=== PATIENT | female | born 1960 | race Caucasian/White ===

== ENCOUNTER 2019-08-13 11:33 | Emergency (ER) | payer MEDICARE, MEDICAID ==
--- NOTE | 2019-08-13 12:13 | EDM.PDOC ---
ED HPI GENERAL MEDICAL PROBLEM - General Chief Complaint: Neurological Problem Stated Complaint: SLURRED SPEECH/FALL Time Seen by Provider: 08/13/19 12:05 Source of Information: Reports: Patient, RN Notes Reviewed History Limitations: Reports: No Limitations - History of Present Illness INITIAL COMMENTS - FREE TEXT/NARRATIVE: Patient is a 58-year-old female who presents to the ED with staff from [facility] , for the evaluation of a fall earlier this a.m. The patient is not complaining of pain anywhere, she does not think that she hit her head. The nurse from [facility] present in the room, states that before 8:00 this morning she had a fall that was unwitnessed, and had some mild speech slurring, that they were worried about. Patient states that she fell onto her butt, due to the floor being slippery. Nurse states that the patient has carpet in her room so she is not unsure as to why the floor would have been slippery. Patient appears to be alert and oriented x3, and states that she had some eggs for breakfast, knows that the month is July, and that the day is Friday. The nurse notes that the patient had a mild choking type accident yesterday, while she was taking her medications, this is not known as a common problem for her. The patient's primary provider is Eunice Neol. Patient denies any other sick-like symptoms, fever/chills, chest pain/shortness of breath, cough. She further denies any sort of dizziness feelings, and states she has been eating and drinking okay as well. - Related Data Allergies Allergy/AdvReac Type Severity Reaction Status Date / Time cephalexin [Cephalexin] Allergy Severe Other Verified 08/13/19 11:42 indomethacin Allergy Severe Other Verified 08/13/19 11:42 Penicillins Allergy Severe Other Verified 08/13/19 11:42 monohydrate Allergy Severe Other Uncoded 08/13/19 11:42 Home Meds: Home Meds Sulfamethoxazole/Trimethoprim [Septra DS] 1 each PO BID #14 tab 08/13/19 [Rx] Past Medical History HEENT History: Reports: Impaired Vision Cardiovascular History: Reports: Hypertension Respiratory History: Reports: Sleep Apnea Musculoskeletal History: Reports: Fracture Other Musculoskeletal History: right hand Psychiatric History: Reports: Anxiety, Depression, Developmental Delay Endocrine/Metabolic History: Reports: Hypothyroidism Dermatologic History: Reports: Cellulitis - Past Surgical History Musculoskeletal Surgical History: Reports: Other (See Below) Other Musculoskeletal Surgeries/Procedures:: fracture repair 2018 Social & Family History - Family History Family Medical History: Noncontributory - Tobacco Use Smoking Status *Q: Never Smoker Second Hand Smoke Exposure: No - Caffeine Use Caffeine Use: Reports: Coffee, Soda, Tea - Recreational Drug Use Recreational Drug Use: No ED ROS GENERAL - Review of Systems Review Of Systems: Comprehensive ROS is negative, except as noted in HPI. ED EXAM, GENERAL - Physical Exam Exam: See Below Exam Limited By: No Limitations General Appearance: Alert, WD/WN, No Apparent Distress Eye Exam: Bilateral Eye: EOMI, Normal Inspection, PERRL Ears: Normal External Exam, Normal Canal, Hearing Grossly Normal, Normal TMs Nose: Normal Inspection Throat/Mouth: Normal Inspection, Normal Lips, Normal Teeth, Normal Gums, Normal Oropharynx, Normal Voice, No Airway Compromise Head: Atraumatic, Normocephalic Neck: Normal Inspection Respiratory/Chest: No Respiratory Distress, Lungs Clear, Normal Breath Sounds, No Accessory Muscle Use, Chest Non-Tender Cardiovascular: Normal Peripheral Pulses, Regular Rate, Rhythm, No Edema, No Murmur Peripheral Pulses: 3+: Radial (L), Radial (R) GI/Abdominal: Normal Bowel Sounds, Soft, Non-Tender, No Distention, No Mass Back Exam: Normal Inspection Extremities: Normal Inspection, Normal Capillary Refill Neurological: Alert, Oriented, Normal Cognition, No Motor/Sensory Deficits Psychiatric: Normal Affect, Normal Mood Skin Exam: Warm, Dry, Intact, Normal Color, No Rash Course - Vital Signs Last Recorded V/S: Last Vital Signs Temp 96.5 F L 08/13/19 11:42 Pulse 82 08/13/19 11:42 Resp 20 08/13/19 11:42 BP 126/80 08/13/19 11:42 Pulse Ox 100 08/13/19 11:42 - Orders/Labs/Meds Orders: Active Orders 24 hr Category Date Time Status CULTURE URINE [RM] Routine Lab 08/13/19 13:17 Ordered Labs: Laboratory Tests 08/13/19 08/13/19 08/13/19 Range/Units 12:18 12:18 12:57 WBC 8.07 (3.98-10.04) K/mm3 RBC 4.32 (3.98-5.22) M/mm3 Hgb 12.2 (11.2-15.7) gm/dl Hct 38.0 (34.1-44.9) % MCV 88.0 (79.4-94.8) fl MCH 28.2 (25.6-32.2) pg MCHC 32.1 L (32.2-35.5) g/dl RDW Std Deviation 43.9 (36.4-46.3) fL Plt Count 337 (182-369) K/mm3 MPV 9.0 L (9.4-12.3) fl Neut % (Auto) 76.7 H (34.0-71.1) % Lymph % (Auto) 13.3 L (19.3-51.7) % [place] % (Auto) 7.7 (4.7-12.5) % Eos % (Auto) 1.7 (0.7-5.8) Baso % (Auto) 0.5 (0.1-1.2) % Neut # (Auto) 6.19 H (1.56-6.13) K/mm3 Lymph # (Auto) 1.07 L (1.18-3.74) K/mm3 [place] # (Auto) 0.62 H (0.24-0.36) K/mm3 Eos # (Auto) 0.14 (0.04-0.36) K/mm3 Baso # (Auto) 0.04 (0.01-0.08) K/mm3 Sodium 138 (136-145) mEq/L Potassium 4.5 (3.5-5.1) mEq/L Chloride 103 (98-107) mEq/L Carbon Dioxide 28 (21-32) mEq/L Anion Gap 11.5 (5-15) BUN 23 H (7-18) mg/dL Creatinine 0.9 (0.55-1.02) mg/dL Est Cr Clr Drug Dosing 62.23 mL/min Estimated GFR (MDRD) > 60 (>60) mL/min BUN/Creatinine Ratio 25.6 H (14-18) Glucose 103 (74-106) mg/dL Calcium 9.0 (8.5-10.1) mg/dL Magnesium 2.0 (1.8-2.4) mg/dl Total Bilirubin 0.4 (0.2-1.0) mg/dL AST 19 (15-37) U/L ALT 24 (14-59) U/L Alkaline Phosphatase 129 H (46-116) U/L Total Protein 7.2 (6.4-8.2) g/dl Albumin 2.8 L (3.4-5.0) g/dl Globulin 4.4 gm/dL Albumin/Globulin Ratio 0.6 L (1-2) Urine Color Yellow (Yellow) Urine Appearance Slt cloudy H (Clear) Urine pH 7.0 (5.0-8.0) Ur Specific [place] 1.020 (1.005-1.030) Urine Protein Trace H (Negative) Urine Glucose (UA) Negative (Negative) Urine Ketones Negative (Negative) Urine Occult Blood Trace-intact H (Negative) Urine Nitrite Negative (Negative) Urine Bilirubin Negative (Negative) Urine Urobilinogen 0.2 (0.2-1.0) Ur Leukocyte Esterase Trace H (Negative) Urine RBC 5-10 H (0-5) /hpf Urine WBC 10-20 H (0-5) /hpf Ur Squamous Epith Cells 0-5 (0-5) /hpf Urine Bacteria Many H (FEW) /hpf Urine Mucus Rare (FEW) /hpf - Re-Assessments/Exams Free Text/Narrative Re-Assessment/Exam: 08/13/19 12:14 Patient presents to the ED for the evaluation of her fall, and other issues. Have ordered some lab work, head CT, chest x-ray for further evaluation. 08/13/19 13:01 Radiology report demonstrates no acute processes noted on the noncontrast head CT, and also nothing on the 2 view chest x-ray. Analysis is still pending, but the patient's metabolic panel and CBC are essentially within normal limits she is mildly dry, she can supplement with oral fluids. 08/13/19 13:17 Patient does appear to have a UTI via lab results, does not appear to be contaminated. Urine was sent for culture activities. Patient has a adverse reaction to penicillins and cephalexin, so will start her on Bactrim for management. Departure - Departure Time of Disposition: 13:20 Disposition: Home, Self-Care 01 Condition: Good Clinical Impression: Fall Qualifiers: Encounter type: initial encounter Qualified Code(s): W19.XXXA - Unspecified fall, initial encounter UTI (urinary tract infection) Qualifiers: Urinary tract infection type: acute cystitis Hematuria presence: with hematuria Qualified Code(s): N30.01 - Acute cystitis with hematuria - Discharge Information *PRESCRIPTION DRUG MONITORING PROGRAM REVIEWED*: No *COPY OF PRESCRIPTION DRUG MONITORING REPORT IN PATIENT CELE: No Instructions: Urinary Tract Infection, Adult, [id number] Referrals: Eunice Noel PA-C [Primary Care Provider] - Forms: ED Department Discharge Additional Instructions: You have been evaluated in the ED for your urinary symptoms. Your urinalysis was consistent with an acute urinary tract infection. Your urine was sent for culture, and you will be notified if you should need a change in your antibiotic. This may take up to 48 hours to result. You may take AZO for urinary pain relief. This is available over the counter, and can be attained at any retail store like [employer] or any pharmacy. Please be aware that this medication will make your urine turn orange. You have been given a prescription for Trimethoprim/Sulfamethoxazole, 1 tablet 2 times a day for 7 days. This has been electronically sent to the [facility] pharmacy located near [facility]. Please increase your oral fluid intake and try to stay adequately hydrated. Recommend you follow-up with your regular care provider, sometime next week to make sure that your symptoms are getting better as expected. Please return to the ED if your symptoms change or worsen. Sepsis Event Note - Evaluation Sepsis Screening Result: No Definite Risk - Focused Exam Vital Signs: Vital Signs Temp Pulse Resp BP Pulse Ox 08/13/19 11:42 96.5 F L 82 20 126/80 100 Date Exam was Performed: 08/13/19 Time Exam was Performed: 13:17 - My Orders Last 24 Hours: My Active Orders 08/13/19 13:17 CULTURE URINE [RM] Routine - Assessment/Plan Last 24 Hours: My Active Orders 08/13/19 13:17 CULTURE URINE [RM] Routine
--- NOTE | 2019-08-13 12:47 | CR ---
Chest: 2 views of the chest were obtained. Comparison: No previous chest x-ray. Heart size is normal. Tortuous thoracic aorta is seen. Lungs are clear with no acute parenchymal change. No acute osseous finding is seen. Impression: 1. Nothing acute is seen on 2 view chest x-ray. Diagnostic code #1 This report was dictated in MDT
--- NOTE | 2019-08-13 12:48 | CT ---
Head CT Technique: Multiple axial sections through the brain were obtained. Intravenous contrast was not utilized. Comparison: Prior head CT study of 02/28/10. Findings: Ventricles along with basal cisterns and sulci over the convexities are within normal limits for the patient's age. No abnormal parenchymal densities are seen. No evidence of intracranial hemorrhage. No midline shift or mass-effect is seen. Bone window settings were reviewed. Small defect is noted within the medial right orbital wall which appears to represent an old fracture. No acute calvarial abnormality is appreciated. Visualized mastoid sinuses and visualized paranasal sinuses show nothing acute. Impression: 1. Nothing acute is appreciated on noncontrast head CT study. Diagnostic code #2 This report was dictated in MDT
== END 2019-08-13 13:38 | disposition home or self-care (01) ==
LOC: JD.ED 11:33
DX: N30.01 Acute cystitis with hematuria (principal); I10 Essential (primary) hypertension; Z88.1 Allergy status to other antibiotic agents; Z88.0 Allergy status to penicillin; Z88.8 Allergy status to other drugs, medicaments and biological substances; Z79.899 Other long term (current) drug therapy
CPT/HCPCS: 36415; 70450; 70450-26; 71046; 71046-26; 80053; 81001; 83735; 85025; 87086; 87088; 87181; 87184; 99283; 99284-25

== ENCOUNTER → 2021-01-22 | Day surgery (SDC) | payer MEDICARE, MEDICAID ==
[~2021-01-22] MED LIST: Acetaminophen 325 MG Tab PO SCH; Clindamycin Phosphate in D5W 900 MG in Premix Bag 1 BAG IV ONE; Clindamycin Phosphate in D5W 900 MG/50 ML Premix Bag IV ONE; Dexamethasone 4 MG/ML 5 ML MDV ONE; EPINEPHrine 1 MG/ML SDV ONE; HYDROmorphone 0.5 MG/0.5 ML Syringe IVPUSH PRN; HYDROmorphone 0.5 MG/0.5 ML Syringe ONE; Lactated Ringers 1,000 ML IV SCH; Lactated Ringers 1,000 ML ONE; Lidocaine 1% 2 ML ONE; Lidocaine 1%/Sod Bicarbonate in NS 8.4% 1 ML Syringe IDERM PRN; Midazolam 1 MG/ML 2 ML SDV ONE; Morphine 8 MG, EPINEPHrine 0.3 MG, Cefuroxime 750 MG, Ketorolac 30 MG, Sodium Chloride ... PRN; Ondansetron 4 MG/2 ML SDV IVPUSH PRN; Ondansetron 4 MG/2 ML SDV ONE; Pregabalin 25 MG Cap PO SCH; Propofol 200 MG/20 ML SDV ONE; Rocuronium 50 MG/5 ML Vial ONE; Ropivacaine 0.5% 5 MG/ML 30 ML SDV ONE; Sodium Chloride 0.9% 10 ML Syringe FLUSH PRN; Succinylcholine/Sod PF 100 MG/5 ML SYRINGE IV ONE; Vancomycin 1 GM SDV ONE; ePHEDrine 50 MG/ML SDV ONE; fentaNYL 100 MCG/2 ML SDV IVPUSH PRN; fentaNYL 100 MCG/2 ML SDV ONE; fentaNYL 250 MCG/5 ML SDV ONE; oxyCODONE 5 MG Tab PO SCH; oxyCODONE ER 10 MG TAB.ER PO SCH
--- NOTE | 2021-01-22 07:45 | PCM.PREANE ---
Preanesthetic Assessment - Procedure Proposed Procedure: Right total knee arthroplasty - Anesthesia/Transfusion/Family Hx Anesthesia History: Prior Anesthesia Without Reaction Family History of Anesthesia Reaction: No Transfusion History: No Prior Transfusion(s) Intubation History: Unknown - Review of Systems General: No Symptoms Pulmonary: No Symptoms Cardiovascular: No Symptoms Gastrointestinal: No Symptoms Neurological: No Symptoms Other: Reports: Easy Bruising, Diabetes, Thyroid Problems, Depression - Physical Assessment NPO Status Date: 01/21/21 NPO Status Time: 19:00 Vital Signs: 147/93 HR 87 RR 18 99% 98.4 Height: 1.63 m Weight: 115 kg ASA Class: 3 Mental Status: Alert & Oriented x3 Dentition: Reports: Normal Dentition, [place](s), [place] Thyro-Mental Finger Breadths: 2 Mouth Opening Finger Breadths: 2 ROM/Head Extension: Full Lungs: Clear to Auscultation, Normal Respiratory Effort Cardiovascular: Regular Rate, Regular Rhythm, No Murmurs - Lab Values: Labs reviewed and okay to proceed - Imaging/EKG Impressions: chest xray: no acute findings EKG NSR HR 74 - Allergies Allergies/Adverse Reactions: Allergies Allergy/AdvReac Type Severity Reaction Status Date / Time cephalexin [Cephalexin] Allergy Unknown Other Verified 01/19/21 15:33 indomethacin Allergy Unknown Other Verified 01/19/21 15:33 Penicillins Allergy Unknown Other Verified 01/19/21 15:33 Iodinated Contrast Media Allergy Cannot Verified 01/19/21 15:33 Remember - Blood Blood Available: No Product(s) Available: None - Anesthesia Plan Beta Mirtha: Other (Propanolol) Med Last Dose Date: 01/22/21 Med Last Dose Time: 06:00 - Acknowledgements Anesthesia Type Planned: General Anesthesia, Spinal, Regional Block Pt an Appropriate Candidate for the Planned Anesthesia: Yes Alternatives and Risks of Anesthesia Discussed w Pt/Guardian: Yes Pt/Guardian Understands and Agrees with Anesthesia Plan: Yes PreAnesthesia Questionnaire HEENT History: Reports: Impaired Vision Cardiovascular History: Reports: CAD, High Cholesterol, Hypertension Other Cardiovascular History: varicose veins, greater than 4 METs of activity with no Chest Pain or SOB Respiratory History: Reports: Sleep Apnea Gastrointestinal History: Reports: GERD Genitourinary History: Reports: UTI, Recurrent, Other (See Below) Other Genitourinary History: urinary frequency RETAIL DIRECTOR History: Reports: Other (See Below) Other OB/BYN History: abnormal uterine/vaginal bleeding Musculoskeletal History: Reports: Arthritis, Fracture Other Musculoskeletal History: right hand Neurological History: Reports: Migraines Psychiatric History: Reports: Anxiety, Depression, Developmental Delay Endocrine/Metabolic History: Reports: Diabetes, Type II, Hypothyroidism, Obesity/BMI 30+ Hematologic History: Reports: Other (See Below) Other Hematologic History: brusing Immunologic History: Reports: None Oncologic (Cancer) History: Reports: None Dermatologic History: Reports: Cellulitis Other Dermatologic History: intertriginous candidiasis, superfiscial phlebitis, onchomycosis - Infectious Disease History Infectious Disease History: Reports: None - Past Surgical History Other Musculoskeletal Surgeries/Procedures:: fracture repair 2017 - SUBSTANCE USE Tobacco Use Status *Q: Never Tobacco User Tobacco Use Within Last Twelve Months: No Second Hand Smoke Exposure: Yes Days Per Week of Alcohol Use: 0 Number of Drinks Per Day: 0 Total Drinks Per Week: 0 Recreational Drug Use History: No - HOME MEDS Home Medications: Home Meds Calcium Carbonate [Tums] 2 tab PO TID PRN 08/13/19 [History] ClomiPRAMINE [ClomiPRAMINE HCl] 2 cap PO BEDTIME 08/13/19 [History] Emollient Combination No.92 [Lubriderm Daily Moisture] 1 applic TOP ASDIRECTED 08/13/19 [History] Levothyroxine [Synthroid] 88 mcg PO DAILY 08/13/19 [History] Omeprazole 20 mg PO DAILY 08/13/19 [History] PARoxetine [Paxil CR] 25 mg PO DAILY 08/13/19 [History] Propranolol [Inderal] 60 mg PO BID 08/13/19 [History] Triamcinolone Acetonide [Triamcinolone Acetonide 0.1% Crm] 1 applic TOP BID 08/13/19 [History] Vitamin E 400 units PO DAILY 08/13/19 [History] atorvaSTATin [Lipitor] 20 mg PO DAILY 08/13/19 [History] traZODone HCl [Trazodone HCl] 25 mg PO BEDTIME 08/13/19 [History] Carbamide Peroxide [Debrox 6.5% Otic Soln] 1 dose EARBOTH ASDIRECTED PRN 01/19/21 [History] Cetirizine HCl [Zyrtec] 10 mg PO DAILY PRN 01/19/21 [History] Cholecalciferol (Vitamin D3) [Vitamin D3] 5,000 unit PO DAILY 01/19/21 [History] ClonazePAM [KlonoPIN] 0.25 mg PO BID 01/19/21 [History] Diclofenac Sodium [Voltaren 1% Gel] 1 dose TOP ASDIRECTED PRN 01/19/21 [History] Multivit-Min/FA/Lycopen/Lutein [Certavite Senior Tablet] 1 tab PO DAILY 01/19/21 [History] Aspirin [Aspirin EC] 325 mg PO BID #84 tab 01/22/21 [Rx] oxyCODONE 5 - 10 mg PO Q4H PRN #40 tab 01/22/21 [Rx] - CURRENT (IN HOUSE) MEDS Current Meds: Current Medications Acetaminophen (Acetaminophen 325 Mg Tab) 975 mg PO ONETIME FREDY Stop: 01/22/21 16:00 Morphine Sulfate 8 mg/Epinephrine HCl 0.3 mg/Cefuroxime Sodium 750 mg/Ketorolac Tromethamine 30 mg/Sodium Chloride 7.9 ml 0 mg .XX ASDIRECTED PRN PRN Reason: Pain Stop: 01/22/21 16:00 Lactated Ringer's (Ringers, Lactated) 1,000 mls @ 125 mls/hr IV ASDIRECTED FREDY Stop: 01/22/21 23:00 Lidocaine/Sodium Bicarbonate (Lidocaine 1%/Sod Bicarbonate In Ns 8.4% 1 Ml Syringe) 0.25 ml IDERM ONETIME PRN PRN Reason: Prior to IV Start Stop: 01/22/21 18:00 Oxycodone HCl (Oxycodone Er 10 Mg Tab.Er) 10 mg PO ONETIME FREDY Stop: 01/22/21 16:00 Pregabalin (Pregabalin 25 Mg Cap) 50 mg PO ONETIME FREDY Stop: 01/22/21 16:00 Sodium Chloride (Sodium Chloride 0.9% 10 Ml Syringe) 10 ml FLUSH ASDIRECTED PRN PRN Reason: Keep Vein Open Stop: 01/22/21 18:00
--- NOTE | 2021-01-22 11:47 | PCM.POSTAN ---
POST ANESTHESIA ASSESSMENT - MENTAL STATUS Mental Status: Alert, Oriented - VITAL SIGNS Vital Signs: Last Vital Signs Temp 97.9 F 01/22/21 11:32 Pulse 87 01/22/21 08:00 Resp 17 01/22/21 11:32 BP 133/71 01/22/21 11:32 Pulse Ox 99 01/22/21 11:32 - RESPIRATORY Respiratory Status: Respiratory Rate WNL, Airway Patent, O2 Saturation Stable - CARDIOVASCULAR CV Status: Pulse Rate WNL, Blood Pressure Stable - GASTROINTESTINAL GI Status: No Symptoms - PAIN Pain Score: 1 - POST OP HYDRATION Hydration Status: Adequate & Stable
--- NOTE | 2021-01-22 11:50 | PCM.SN.2 ---
- Free Text/Narrative Note: Right selective femoral nerve block at the adductor canal for post-procedure pain control under US guidance requested by Dr. Salvador. Time Out: 1116 Start: 1117 End: 1125 Chart reviewed. Consent signed. Questions answered. Appropriate monitors applied. Time out performed. Right mid-shaft femur identified with ultrasound, scanning medially of femur, the femoral artery in the adductor canal visualized, and the femoral nerve located laterally to the artery. The skin was prepped lateral to the ultrasound probe with chlorahexadine times two. The 21ga 4 insulated block needle was inserted under direct ultrasound guidance into the adductor canal. 20mL of 0.5% ropivacaine with 1:200,000 epinephrine was injected circumferentially around the nerve with intermittent negative aspiration noted. Patient tolerated the procedure well. Sterile technique noted along with sterile gloves, mask, and sterile probe cover. See picture on progress note and vital signs on nurses notes. Block completed in PACU. Alyssa Black CRNA Time Documentation
--- NOTE | 2021-01-22 12:06 | CR ---
Right knee: AP and crosstable lateral views of the right knee were obtained. Comparison: Prior right knee CT study of 01/09/21. Right knee prosthesis is seen. Components are aligned. Patellar prosthesis is also noted. Underlying bony structures are intact. Small amount of soft tissue air is seen. Impression: 1. Satisfactory postoperative radiographic appearance of recently placed right knee prostheses. Diagnostic code #2
--- NOTE | 2021-01-22 15:47 | PCM.SN.2 ---
- Free Text/Narrative Note: Today, the patient was evaluated by Dr. Salvador [id number]. Home health services are ordered for the patient. The patient will benefit from home health nursing to provide education and monitoring of the pt's surgical wound, to assess for signs and symptoms of infection, to assist with pain management and to monitor the patient's health status. Physical therapy is ordered to assist the patient with gait training, balance, range of motion and strengthening activities. Occupational therapy is ordered to complete a home safety evaluation and to assist the patient with completion of ADLs and safety with mobility. The patient is home-bound at this time due to recent surgery. She will be using a FWW for mobility and will require assistance with mobility. The patient's primary care provider is Eunice Noel PA-C. The patient had a recent History and Physical completed by Helen Park NP due to Eunice Noel PA-C being out of the office for a period of time. Time Documentation
--- NOTE | 2021-02-01 07:27 | PCM.OPNOTE ---
- General Post-Op/Procedure Note Date of Surgery/Procedure: 01/22/21 Operative Procedure(s): right total knee arthroplasty with [employer] robot[employer] Pre Op Diagnosis: right knee ostearthrosis Post-Op Diagnosis: Same Anesthesia Technique: Local, MAC, Spinal Primary Surgeon: Chidi Salvador Anesthesia Provider: Alyssa Black [facility] Coordinator: Aracelis Chappell [facility] Coordinator: Meeta Wilhelm EBL in mLs: 5 Complications: None Condition: Good Free Text/Narrative:: / 9mm 32x10
--- NOTE | 2021-02-05 11:39 | OR ---
DATE OF OPERATION: 01/22/2021 SURGEON: Chidi Salvador MD OPERATION PERFORMED: Right total knee arthroplasty with [employer] robotics. PREOPERATIVE DIAGNOSIS: Right knee osteoarthrosis. POSTOPERATIVE DIAGNOSIS: Right knee osteoarthrosis. ANESTHESIA: Local MAC with spinal . ANESTHESIA PROVIDER: Sony Aguilera. ASSISTANTS: Aracelis Chappell PA-C and Meeta Wilhelm LPN. ESTIMATED BLOOD LOSS: 5 mL. COMPLICATIONS: None. CONDITION: Stable. IMPLANTS: 1. [place] size 3 cemented PS femur. 2. Sebas size 2 cemented Dearing tibial baseplate. 3. [place]ford size 2, 9 mm PS X3 polyethylene. 4. [place]amford size 32 x 10 mm cemented asymmetric patella. DESCRIPTION OF PROCEDURE: The patient was identified in the preop holding area. Proper site was marked and identified by the surgeon. The patient was taken back to the operating theater where after adequate anesthesia, the patient's right lower extremity had a nonsterile tourniquet applied and it was sterilely prepped and draped in the usual sterile fashion. OR time-out was performed. The patient received 2 g IV Ancef. Leg stone was then applied to the right lower extremity. At this time, the right lower extremity was exsanguinated. Tourniquet was insufflated to 250 mmHg. Standard anterior incision was made. Medial parapatellar arthrotomy was created. Deep fibers of the MCL were raised as well as anterior fat pad was resected. Attention was turned to the patella. Patella measured 21 mm; it was resected to 13 mm for 32 x 10 mm patella. Drill holes were then drilled. Attention was then turned to the femur. Two 4.0 pins were placed intra- incisionally for the [employer] Raul robotic array and then 2 more were placed on the tibia 3 fingerbreadths below the tibial tubercle. The Se[employer] Raul robotic arrays were placed on both the femur and the tibia then at this time as well as checkpoints on the femur and tibia. Hip center rotation was then obtained. The medial and lateral malleoli were marked. At this time, 40 points were obtained off the femur and the tibia for the [place] Raul robotic plan. The patient's knee was brought to full extension. Varus and valgus stresses were applied and then into 90 degrees of flexion with a curved osteotome. Varus and valgus stresses were applied. At this time, [employer] robotic plan was done to 19 mm gaps in both flexion and extension. [employer] robotic arm was then brought in. A straight saw blade was then used for the tibial cut, the anterior femoral cut, the anterior chamfer cut, and the posterior femoral cut. All bony fragments were removed. Saw blade was then switched out and the distal femoral cut as well as the posterior chamfer cut was completed. At this time, medial and lateral menisci were resected as well as any posterior osteophytes. A 2 mm trial tibia was then placed, 3 mm trial femur was placed, and size 2, 9 mm PS X3 polyethylene trial liner was placed. The patient's knee was brought to full extension and flexion. Varus and valgus stresses were applied, was found to be stable with no instability. No signs of liftoff or loosening were noted. At this time, box cut was completed on the femur. The pins were removed from the femur and the tibia as well as the arrays and the checkpoints. Cement was mixed on the back table. All cut surfaces were irrigated with pulse lavage irrigation with Ancef and then completely dried. Once the cement was ready, the [place]ford size 2 mm cemented Dearing tibial base plate having been previously stamped and drilled, was then cemented in place on the tibia. The [place] size 3 mm cemented femur was cemented into place. The patient had a [place] size 2, 9 mm PS X3 polyethylene insert placed. The patient's knee was brought to full extension. Excess cement was removed. A [place] size 32 x 10 mm cemented asymmetric patella was then cemented into place. 1 L of pulse lavage irrigation with Ancef was irrigated through the knee along with 400 mL of IrriSept irrigation. Periarticular injection was completed. Topical tranexamic acid and vancomycin powder were applied. A #2 barbed suture was used for closure of the medial parapatellar arthrotomy in flexion. 2-0 Vicryl and Stratafix were used for subcutaneous closure. Prineo was used for cutaneous closure. The patient had a sterile soft dressing applied. The tibial holes were closed with nylon, and this was also covered with a sterile soft dressing. The patient had an RAMONE wrap applied and was sent to PACU in stable condition. The patient tolerated the procedure well. MMODAL /[id number]
== END | disposition home or self-care (01) ==
LOC: JD.SDS 07:34
PROVIDERS: ATTEND Orthopaedic Surgery
DX: M17.11 Unilateral primary osteoarthritis, right knee (principal); I10 Essential (primary) hypertension; E03.9 Hypothyroidism, unspecified; E78.2 Mixed hyperlipidemia; G47.33 Obstructive sleep apnea (adult) (pediatric); K21.9 Gastro-esophageal reflux disease without esophagitis; Z88.8 Allergy status to other drugs, medicaments and biological substances; Z88.0 Allergy status to penicillin; Z79.82 Long term (current) use of aspirin; Z79.899 Other long term (current) drug therapy; Z79.890 Hormone replacement therapy; Z98.890 Other specified postprocedural states
CPT/HCPCS: 27447; 73560; 82947; 97116; 97161; A9270; C1713; C1776; J0171; J0330; J0697; J1100; J1170; J1885; J2250; J2270; J2405; J2704; J2710; J2795; J3010; J3370; J3490; J7120; 01402

== ENCOUNTER 2022-12-04 07:00 | Day surgery (SDC) | payer MEDICARE, MEDICAID ==
[~2022-12-04 07:00] MED LIST changes: -Acetaminophen 325 MG Tab PO SCH; -Clindamycin Phosphate in D5W 900 MG in Premix Bag 1 BAG IV ONE; -Clindamycin Phosphate in D5W 900 MG/50 ML Premix Bag IV ONE; -Dexamethasone 4 MG/ML 5 ML MDV ONE; +Dexmedetomidine 200 MCG/2 ML SDV ONE; -HYDROmorphone 0.5 MG/0.5 ML Syringe IVPUSH PRN; -HYDROmorphone 0.5 MG/0.5 ML Syringe ONE; -Lactated Ringers 1,000 ML ONE; -Lidocaine 1% 2 ML ONE; -Lidocaine 1%/Sod Bicarbonate in NS 8.4% 1 ML Syringe IDERM PRN; -Midazolam 1 MG/ML 2 ML SDV ONE; -Ondansetron 4 MG/2 ML SDV IVPUSH PRN; -Ondansetron 4 MG/2 ML SDV ONE; -Pregabalin 25 MG Cap PO SCH; -Propofol 200 MG/20 ML SDV ONE; -Rocuronium 50 MG/5 ML Vial ONE; +Sodium Chloride 0.9% 10 ML Syringe FLUSH SCH; -Succinylcholine/Sod PF 100 MG/5 ML SYRINGE IV ONE; -Vancomycin 1 GM SDV ONE; -ePHEDrine 50 MG/ML SDV ONE; -fentaNYL 100 MCG/2 ML SDV IVPUSH PRN; -fentaNYL 100 MCG/2 ML SDV ONE; -fentaNYL 250 MCG/5 ML SDV ONE; -oxyCODONE 5 MG Tab PO SCH; -oxyCODONE ER 10 MG TAB.ER PO SCH
[2022-12-04] MEDS ORDERED: Midazolam 1 MG/ML 2 ML SDV ONE (07:35)
[2022-12-04] MEDS ORDERED: fentaNYL 100 MCG/2 ML SDV ONE (07:35)
[2022-12-04] MEDS ORDERED: Propofol 200 MG/20 ML SDV ONE ×2 (07:35→10:22)
[2022-12-04] MEDS ORDERED: Vancomycin 1 GM SDV ONE (08:47)
[2022-12-04] MEDS ORDERED: Tranexamic Acid 1,000 MG/10 ML Vial ONE (08:47)
[2022-12-04] MEDS ORDERED: VANCOmycin 1.5 GM/300 ML 1.5 GM in Premix Bag 1 BAG IV ONE (09:00)
[2022-12-04] MEDS ORDERED: Lactated Ringers 1,000 ML ONE (09:38)
[2022-12-04] MEDS ORDERED: fentaNYL 100 MCG/2 ML SDV IVPUSH PRN (09:54)
[2022-12-04] MEDS ORDERED: Ondansetron 4 MG/2 ML SDV IVPUSH PRN (09:54)
[2022-12-04] MEDS ORDERED: HYDROmorphone 0.5 MG/0.5 ML Syringe IVPUSH PRN (09:54)
[2022-12-04] MEDS: oxyCODONE 5 MG Tab PO PRN ×2 (13:13→14:07)
== END 2022-12-04 14:20 | disposition home or self-care (01) ==
LOC: JD.SDS 07:00
PROVIDERS: ATTEND Orthopaedic Surgery
DX: M17.12 Unilateral primary osteoarthritis, left knee (principal); G89.29 Other chronic pain; F41.9 Anxiety disorder, unspecified; K21.9 Gastro-esophageal reflux disease without esophagitis; I10 Essential (primary) hypertension; E78.00 Pure hypercholesterolemia, unspecified; E03.9 Hypothyroidism, unspecified; F33.1 Major depressive disorder, recurrent, moderate; I25.10 Atherosclerotic heart disease of native coronary artery without angina pectoris; G47.33 Obstructive sleep apnea (adult) (pediatric); M85.80 Other specified disorders of bone density and structure, unspecified site; Z88.1 Allergy status to other antibiotic agents; Z88.8 Allergy status to other drugs, medicaments and biological substances; Z88.0 Allergy status to penicillin; Z79.82 Long term (current) use of aspirin; Z79.890 Hormone replacement therapy; Z79.899 Other long term (current) drug therapy
CPT/HCPCS: 01402; 64447; 73560-26-LT; 73560-LT; 97110-GP; 97116-GP; 97161-GP; A9270-GY; C1713; C1776; J0171; J0697; J1885; J2250; J2270; J2704; J2795; J3010; J3370; J3490; J7030; J7120